=== PATIENT | male | born 1950 | race Caucasian/White ===

== ENCOUNTER → 2016-11-16 | Outpatient (CLI) | payer MEDICARE, OTHER ==
--- NOTE | 2016-11-16 14:35 | KCIC ---
PQRS STATEMENT One or more of the following individualized dose reduction techniques were utilized for this study:1.Automated exposure control. 2.Adjustment of the mA and/orkVaccording to patient size. 3.Use of iterative reconstruction technique CT chest. Indication: Reason For Study Reason: SMoker of 48 yrs, productive cough in the morning, some SOA / Spl. Instructions: / History: TECHNIQUE Multiple contiguous axial images were obtained through the chest. Coronal reformations were created. Comparison: CT chest from 10/24/2015 Findings: Evaluation of the mediastinum and delroy is limited in the absence of IV contrast but no gross adenopathy is identified. The heart is normal in size and demonstrates dense coronary artery calcifications and mitral calcifications. The thoracic aorta is normal in caliber. There is no pericardial effusion. Again noted are tiny bilateral pulmonary nodules which are unchanged. No new or enlarging nodules are identified. These are most likely benign. These range 1-2 millimeters in size. There is no infiltrate or pleural effusion. Limited subdiaphragmatic evaluation demonstrates cholelithiasis and presumed left renal cysts. These are incompletely visualized. No destructive osseous lesions. Impression: - Coronary artery disease. - Unchanged tiny bilateral pulmonary nodules. No new or enlarging nodules are seen. These are most likely benign. - Cholelithiasis. Electronically signed by: Jameel Coelho (Nov 16, 2016 14:33:56)
== END | disposition home or self-care (01) ==
LOC: KCIC CT 12:42
PROVIDERS: ATTEND Family Medicine
DX: Z13.83 Encounter for screening for respiratory disorder NEC (principal); R05 Cough; R06.02 Shortness of breath; F17.200 Nicotine dependence, unspecified, uncomplicated
CPT/HCPCS: 71250

== ENCOUNTER → 2017-05-27 | Outpatient (CLI) | payer OTHER, MEDICARE ==
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
== END | disposition home or self-care (01) ==
LOC: KCIC 15:24
PROVIDERS: ATTEND Physician Assistant Medical
DX: M79.605 Pain in left leg (principal)
CPT/HCPCS: 73590

== ENCOUNTER → 2017-12-22 | Outpatient (CLI) | payer MEDICARE | END | disposition home or self-care (01) | LOC: KCIC 13:17 | DX: J44.9 Chronic obstructive pulmonary disease, unspecified (principal) | CPT/HCPCS: 71046 ==

== ENCOUNTER → 2018-09-13 | Outpatient (CLI) | payer MEDICARE ==
--- NOTE | 2018-09-13 15:48 | KCIC ---
CHEST PA LATERAL dated 09/13/2018 12:00 AM. Comparison: 12/22/2017 Clinical Indication: COPD, BRONCHITIS. PRODUCTIVE COUGH FOR 4 DAYS. TOBACCO USE Findings: PA and lateral views obtained. Heart and mediastinal contours are stable. Dual lead left subclavian pacer in place, unchanged. Patient is status post median sternotomy. There are some prominent perihilar linear markings, similar to prior study. No consolidation or pleural effusion. No pneumothorax. Impression: No acute radiographic abnormality. Stable findings compared to 12/22/2017. Electronically signed by: Juan Sullivan MD (09/13/2018 3:45 PM) [id number]
== END | disposition home or self-care (01) ==
LOC: KCIC 15:31
PROVIDERS: ATTEND Physician Assistant Medical
DX: J44.1 Chronic obstructive pulmonary disease with (acute) exacerbation (principal); J20.9 Acute bronchitis, unspecified; Z72.0 Tobacco use
CPT/HCPCS: 71046